=== PATIENT | male | born 1955 | race Caucasian/White ===

== ENCOUNTER 2017-04-04 13:34 | Emergency (ER) | payer OTHER ==
[~2017-04-04] VITALS: Ht 188 cm; Wt 95.3 kg
[2017-04-04] MEDS ORDERED: DULERA 100 MCG/13 GM IH (14:27)
[2017-04-04] MEDS ORDERED: PROAIR HFA8.5 GM IH (14:27)
[2017-04-04 15:11] VITALS: BP 120/80
== END 2017-04-04 15:11 | disposition home or self-care (01) ==
LOC: EME 13:34
DX: J44.1 Chronic obstructive pulmonary disease with (acute) exacerbation (principal); Z76.0 Encounter for issue of repeat prescription; F17.200 Nicotine dependence, unspecified, uncomplicated; I10 Essential (primary) hypertension; I25.2 Old myocardial infarction; Z95.5 Presence of coronary angioplasty implant and graft; Z88.1 Allergy status to other antibiotic agents
CPT/HCPCS: 94640; 99281; 99284; J8540